=== PATIENT | female | born 1955 | race Two or more races ===

== ENCOUNTER 2017-01-08 09:30 | Day surgery (SDC) | payer OTHER ==
[2017-01-02 14:25] VITALS: BMI 21.4
[2017-01-08] MEDS ORDERED: PROPOFOL 20 ML ONE ×2 (10:06)
[2017-01-08 11:58] VITALS: BP 110/65; PULSE 64; TEMP 98
== END 2017-01-08 11:58 | disposition home or self-care (01) ==
LOC: FASU-ENDO 09:30
PROVIDERS: ATTEND Internal Medicine Gastroenterology
PROC: 0DJD8ZZ Inspection of Lower Intestinal Tract, Via Natural or Artificial Opening Endoscopic (ICD-10-PCS; principal; 2017-01-08 10:50)
DX: Z12.11 Encounter for screening for malignant neoplasm of colon (principal); K63.89 Other specified diseases of intestine; K64.8 Other hemorrhoids